=== PATIENT | female | born 1995 ===

== ENCOUNTER 2024-04-26 05:19 | Day surgery (SDC) | payer OTHER ==
[2024-04-26] MEDS ORDERED: NEURONTIN300 MG PO (08:42)
[2024-04-26] MEDS ORDERED: TRAM1TAB98 PO (08:42)
[2024-04-26] MEDS ORDERED: COLACE100 MG PO (08:42)
[2024-04-26] MEDS ORDERED: PIPERACILLIN/TAZOBACTAM SODIUM 3.375 GM VIAL IV ONE ×2 (08:45→10:20)
[2024-04-26] MEDS ORDERED: BUPIVACAINE HCL/PF 0.25% 30ML VIAL InF ONE (08:45)
[2024-04-26] MEDS ORDERED: HEMOSTATIC MATRIX 1 KIT KIT TOP ONE (09:00)
[2024-04-26] MEDS ORDERED: CHLORHEXIDINE GLUCONATE 120 ML BOTTLE TOP ONE (09:00)
[2024-04-26] MEDS ORDERED: POVIDONE-IODINE 118 ML BOTT TOP ONE (09:00)
[2024-04-26] MEDS ORDERED: DIBUCAINE 30 GM TUBE RECTAL ONE (09:00)
[2024-04-26] MEDS ORDERED: LIDOCAINE HCL 1%/EPINEPHRINE 20ML VIAL IJ ONE (09:00)
== END 2024-04-26 14:45 | disposition home or self-care (01) ==
LOC: CIR.AMB 05:19
PROVIDERS: ATTEND Surgery
DX: K60.1 Chronic anal fissure (principal); K62.89 Other specified diseases of anus and rectum